=== PATIENT | female | born 1965 ===

== ENCOUNTER → 2017-04-11 11:22 | Outpatient (CLI) | payer OTHER ==
[~2017-04-11 11:22] MED LIST: CIPRO500 MG PO; TYLENOL-CODEINE1 TAB PO
== END | disposition home or self-care (01) ==
LOC: LAB 11:22
DX: D47.2 Monoclonal gammopathy (principal); M50.00 Cervical disc disorder with myelopathy, unspecified cervical region; D32.9 Benign neoplasm of meninges, unspecified; D50.8 Other iron deficiency anemias; D51.8 Other vitamin B12 deficiency anemias; I10 Essential (primary) hypertension; C90.00 Multiple myeloma not having achieved remission; R97.0 Elevated carcinoembryonic antigen [CEA]

== ENCOUNTER 2017-06-22 09:30 | Outpatient (CLI) | payer OTHER | END 2017-06-22 09:40 | disposition home or self-care (01) | LOC: LAB 09:30 | DX: D47.2 Monoclonal gammopathy (principal); M50.00 Cervical disc disorder with myelopathy, unspecified cervical region; D32.9 Benign neoplasm of meninges, unspecified; D50.8 Other iron deficiency anemias; D51.1 Vitamin B12 deficiency anemia due to selective vitamin B12 malabsorption with proteinuria; I10 Essential (primary) hypertension; D51.0 Vitamin B12 deficiency anemia due to intrinsic factor deficiency; R97.0 Elevated carcinoembryonic antigen [CEA]; E03.8 Other specified hypothyroidism; E06.3 Autoimmune thyroiditis; B18.1 Chronic viral hepatitis B without delta-agent; C90.00 Multiple myeloma not having achieved remission ==

== ENCOUNTER → 2017-12-12 10:06 | Outpatient (CLI) | payer OTHER | END | disposition home or self-care (01) | LOC: LAB 10:06 | DX: D47.2 Monoclonal gammopathy (principal); M50.00 Cervical disc disorder with myelopathy, unspecified cervical region; D32.9 Benign neoplasm of meninges, unspecified; B19.10 Unspecified viral hepatitis B without hepatic coma; C90.00 Multiple myeloma not having achieved remission; I10 Essential (primary) hypertension ==

== ENCOUNTER → 2018-09-18 09:35 | Outpatient (CLI) | payer OTHER | END | disposition home or self-care (01) | LOC: LAB 09:35 | DX: D47.2 Monoclonal gammopathy (principal); M50.00 Cervical disc disorder with myelopathy, unspecified cervical region; D32.9 Benign neoplasm of meninges, unspecified; B19.10 Unspecified viral hepatitis B without hepatic coma ==

== ENCOUNTER 2021-06-09 08:41 | Outpatient (CLI) | payer OTHER | END 2021-06-09 16:49 | disposition home or self-care (01) | LOC: LAB 08:41 | PROVIDERS: ATTEND Internal Medicine Hematology & Oncology | DX: D50.8 Other iron deficiency anemias (principal); I10 Essential (primary) hypertension; R74.02 Elevation of levels of lactic acid dehydrogenase [LDH]; K76.89 Other specified diseases of liver; D47.2 Monoclonal gammopathy; C90.00 Multiple myeloma not having achieved remission; C50.919 Malignant neoplasm of unspecified site of unspecified female breast; R97.8 Other abnormal tumor markers; C25.9 Malignant neoplasm of pancreas, unspecified; C56.9 Malignant neoplasm of unspecified ovary; R97.1 Elevated cancer antigen 125 [CA 125]; R97.0 Elevated carcinoembryonic antigen [CEA]; D32.9 Benign neoplasm of meninges, unspecified; B19.10 Unspecified viral hepatitis B without hepatic coma; D51.3 Other dietary vitamin B12 deficiency anemia ==

== ENCOUNTER 2021-08-05 06:40 | Outpatient (CLI) | payer OTHER | END 2021-08-05 06:41 | disposition home or self-care (01) | LOC: LAB 06:40 | PROVIDERS: ATTEND Internal Medicine Hematology & Oncology | DX: D50.8 Other iron deficiency anemias (principal); I10 Essential (primary) hypertension; R74.02 Elevation of levels of lactic acid dehydrogenase [LDH]; K76.89 Other specified diseases of liver; C25.9 Malignant neoplasm of pancreas, unspecified; R97.8 Other abnormal tumor markers; C56.9 Malignant neoplasm of unspecified ovary; R97.1 Elevated cancer antigen 125 [CA 125]; R97.0 Elevated carcinoembryonic antigen [CEA]; B17.9 Acute viral hepatitis, unspecified; Z11.59 Encounter for screening for other viral diseases; B18.2 Chronic viral hepatitis C; D47.2 Monoclonal gammopathy; D32.9 Benign neoplasm of meninges, unspecified; B19.10 Unspecified viral hepatitis B without hepatic coma; D51.3 Other dietary vitamin B12 deficiency anemia; M50.00 Cervical disc disorder with myelopathy, unspecified cervical region ==

== ENCOUNTER 2022-03-03 07:56 | Outpatient (CLI) | payer OTHER | END 2022-03-03 07:57 | disposition home or self-care (01) | LOC: LAB 07:56 | PROVIDERS: ATTEND Internal Medicine Hematology & Oncology | DX: D50.8 Other iron deficiency anemias (principal); I10 Essential (primary) hypertension; D47.2 Monoclonal gammopathy; R74.02 Elevation of levels of lactic acid dehydrogenase [LDH]; K76.89 Other specified diseases of liver; C90.00 Multiple myeloma not having achieved remission; M50.00 Cervical disc disorder with myelopathy, unspecified cervical region; D32.9 Benign neoplasm of meninges, unspecified; B19.10 Unspecified viral hepatitis B without hepatic coma; D51.3 Other dietary vitamin B12 deficiency anemia ==

== ENCOUNTER 2023-02-09 07:48 | Outpatient (CLI) | payer OTHER ==
[2023-02-09 08:59] LABS: HEMATOCRIT 37.6 % (36.0-45.00); HEMOGLOBIN 12.8 g/dL (12.0-15.00); MEAN CELL VOLUME 89.7 fL (80.00-100.00); MEAN CORPUSCULAR HEMOGLOBIN 30.5 pg (27.00-32.0); MEAN CORPUSCULAR HGB CONC 34.1 g/dl (32.0-36.0); PLATELET COUNT 291 K/uL (150-450); RED BLOOD COUNT 4.19 M/uL (4.00-6.00); RED CELL DISTRIBUTION WIDTH 14.2 % (11.5-14.5)
[2023-02-09 09:35] LABS: ALBUMIN 3.8 gm/dL (3.4-5.0); BILIRUBIN TOTAL 0.46 mg/dL (0.3-1.2); CALCIUM 9.2 mg/dL (8.5-10.1); CREATININE SERUM 0.67 mg/dL (0.55-1.02); GFR 90.09; GLOBULINA 3.5 G/DL (2.4-3.5); POTASSIUM 3.99 mEq/L (3.5-5.1); TOTAL PROTEIN 7.3 gm/dL (6.4-8.2)
[2023-02-09 10:28] LABS: FOLIC ACID 5.92 ng/ml (4.78-20)
[2023-02-10 14:06] LABS: kappa lambda r 1.68 (0.26-1.65); kappa light 19.5 mg/L (3.3-19.4); lambda light 11.6 mg/L (5.7-26.3)
== END 2023-02-09 07:49 | disposition home or self-care (01) ==
LOC: LAB 07:48
PROVIDERS: ATTEND Internal Medicine Hematology & Oncology
DX: D50.8 Other iron deficiency anemias (principal); I10 Essential (primary) hypertension; R74.02 Elevation of levels of lactic acid dehydrogenase [LDH]; K76.89 Other specified diseases of liver; D51.8 Other vitamin B12 deficiency anemias; D47.2 Monoclonal gammopathy; C90.00 Multiple myeloma not having achieved remission; M50.00 Cervical disc disorder with myelopathy, unspecified cervical region; D32.9 Benign neoplasm of meninges, unspecified; B19.10 Unspecified viral hepatitis B without hepatic coma; D51.3 Other dietary vitamin B12 deficiency anemia

== ENCOUNTER 2024-06-13 06:37 | Outpatient (CLI) | payer OTHER ==
[2024-06-13 07:52] LABS: HEMATOCRIT 38.1 % (36.0-45.00); HEMOGLOBIN 12.9 g/dL (12.0-15.00); MEAN CELL VOLUME 89.4 fL (80.00-100.00); MEAN CORPUSCULAR HEMOGLOBIN 30.3 pg (27.00-32.0); MEAN CORPUSCULAR HGB CONC 33.9 g/dl (32.0-36.0); PLATELET COUNT 306 K/uL (150-450); RED BLOOD COUNT 4.26 M/uL (4.00-6.00); RED CELL DISTRIBUTION WIDTH 14.1 % (11.5-14.5)
[2024-06-13 08:01] LABS: ERYTHROCYTE SEDIMENTATION RATE 14 mm/hr
[2024-06-13 08:43] LABS: PH,URINE 6.5 (5.0-8.0); URINE APPEARANCE Clear; URINE BILIRRUBIN Negative (NEGATIVE); URINE BLOOD Negative; URINE COLOR Yellow; URINE GLUCOSE Negative (NEGATIVE); URINE KETONE Negative (NEGATIVE); URINE LEUKOCYTE Small; URINE NITRATE Negative; URINE PROTEIN Negative (NEGATIVE); URINE UROBILINOGEN 0.2 E.U./dl
[2024-06-13 08:45] LABS: ALKALINE PHOSPHATASE 101 U/L (50-136); ALT/SGPT 29 U/L (12-78); ANION GAP 10 (10.0-20.0); AST/SGOT 20 U/L (15-37); BILIRUBIN TOTAL 0.45 mg/dL (0.3-1.2); BLOOD UREA NITROGEN 17 mg/dL (7-18); BUN CREA RATIO 26 (7.0-25.0); CALCIUM 9.5 mg/dL (8.5-10.1); CARBON DIOXIDE 27 mEq/L (21-32); CHLORIDE 108 mmol/L (98-107); CHOL HDL RATIO 3.2 (0-5.0); CHOLESTEROL 196 mg/dL (0-200); CREATININE SERUM 0.65 mg/dL (0.55-1.02); GFR 92.97; GLOBULINA 3.4 G/DL (2.4-3.5); GLUCOSE FASTING 94 mg/dL (65-100); HDL 61 mg/dl (40-60); LDH 106 U/L (84-246); LDL 110 mg/dl (0-130); OSMOLALITY SERUM 283 MOSM/KG (275-295); PHOSPHOKINASE CREATININE 154 U/L (26-192); POTASSIUM 4.41 mEq/L (3.5-5.1); SODIUM 141 mmol/L (136-145); TOTAL PROTEIN 7.4 gm/dL (6.4-8.2); TRIGLYCERIDES 123 mg/dL (0-150); VLDL 24 (0-39)
[2024-06-13 08:47] LABS: URINE BACTERIA 53.8 uL (0.0-1933); URINE RBC 2.3 uL (0.0-20.8)
[2024-06-13 08:51] LABS: C-REACTIVE PROTEIN < 0.29 MG/DL (0.00-0.29)
[2024-06-13 12:07] LABS: FOLIC ACID 6.47 ng/ml (4.78-20); VITAMIN D3 25 HYDROXY 108.9 ng/ml (30-120)
[2024-06-14 12:12] LABS: kappa lambda r 1.72 (0.26-1.65); kappa light 19.8 mg/L (3.3-19.4); lambda light 11.5 mg/L (5.7-26.3)
[2024-06-15 07:10] LABS: IMM A 178 mg/dL (87-352); IMM G 1025 mg/dL (586-1602); IMM M 270 mg/dL (26-217); a:g ratio 1.3 (0.7-1.7); alpha 1 g 0.2 g/dL (0.0-0.4); alpha 2 0.8 g/dL (0.4-1.0); gamma g 1.2 g/dL (0.4-1.8); globulin t 3.2 g/dL (2.2-3.9); m spike 0.3 g/dL (Not Observed); prot total 7.2 g/dL (6.0-8.5)
[2024-06-15 17:08] LABS: alp 0 % (.); alph 2 0 % (.); beta 0 % (.); gam 0 % (.); m spi 0 % (Not Observed); prot 8.9 mg/dL (Not Estab.)
== END 2024-06-13 06:45 | disposition home or self-care (01) ==
LOC: LAB 06:37
PROVIDERS: ATTEND Internal Medicine Hematology & Oncology
DX: D47.2 Monoclonal gammopathy (principal); M50.00 Cervical disc disorder with myelopathy, unspecified cervical region; D32.9 Benign neoplasm of meninges, unspecified; B19.10 Unspecified viral hepatitis B without hepatic coma; D51.3 Other dietary vitamin B12 deficiency anemia; D50.8 Other iron deficiency anemias; I10 Essential (primary) hypertension; R74.02 Elevation of levels of lactic acid dehydrogenase [LDH]; K76.89 Other specified diseases of liver; D51.8 Other vitamin B12 deficiency anemias; E55.9 Vitamin D deficiency, unspecified; C90.00 Multiple myeloma not having achieved remission; D64.9 Anemia, unspecified; R30.1 Vesical tenesmus; E78.5 Hyperlipidemia, unspecified; E03.9 Hypothyroidism, unspecified; M25.10 Fistula, unspecified joint